=== PATIENT | female | born 1990 | race Caucasian/White ===

== ENCOUNTER 2017-02-28 21:11 | Emergency (ER) | payer BC ==
[~2017-02-28] VITALS: Ht 162.6 cm; Wt 69.4 kg
[2017-02-28] MEDS ORDERED: VENL75CA PO (21:38)
[2017-02-28] MEDS ORDERED: TRAM50TA2 PO (21:38)
[2017-02-28] MEDS ORDERED: BUPIVACAINE 0.25% ONE (21:47)
[2017-02-28] MEDS ORDERED: KETOROLAC 30 MG/1 ML ONE (21:47)
[2017-02-28] MEDS ORDERED: DEXAMETHASONE 4 MG/ML, 5ML ONE (21:47)
[2017-02-28] MEDS ORDERED: DIPHENHYDRAMINE 50 MG/ML, 1ML ONE (21:47)
[2017-02-28] MEDS ORDERED: METOCLOPRAMIDE 5 MG/ML, 2ML ONE (21:47)
[2017-02-28] MEDS ORDERED: HYDROmorphone 1 MG/ML, 1ML ONE (21:47)
[2017-02-28] MEDS ORDERED: BUPIVACAINE/PF 0.5% ONE (21:51)
[2017-02-28] MEDS ORDERED: SODIUM CHLORIDE 0.9% 1,000ML IVBOLUS ONE (22:00)
[2017-02-28] MEDS ORDERED: DIPHENHYDRAMINE 50 MG/ML, 1ML IVPush ONE (22:00)
[2017-02-28] MEDS ORDERED: DEXAMETHASONE 4 MG/ML, 1ML IVPush ONE (22:00)
[2017-02-28] MEDS ORDERED: BUPIVACAINE/PF 0.5% INFIL ONE (22:00)
[2017-02-28] MEDS ORDERED: HYDROmorphone 1 MG/ML, 1ML IV ONE (22:00)
[2017-02-28] MEDS ORDERED: METOCLOPRAMIDE 5 MG/ML, 2ML IVPush ONE (22:00)
[2017-02-28] MEDS ORDERED: KETOROLAC 30 MG/1 ML IVPush ONE (22:00)
[2017-02-28 23:08] VITALS: BP 117/70
== END 2017-02-28 23:10 | disposition home or self-care (01) ==
LOC: ED 22:48
DX: G43.009 Migraine without aura, not intractable, without status migrainosus (principal); Z88.0 Allergy status to penicillin; Z90.710 Acquired absence of both cervix and uterus
CPT/HCPCS: 64450; 96361; 96374; 96375; 99284; J1100; J1170; J1200; J1885; J2765; J7030